=== PATIENT | male | born 1965 | race Caucasian/White ===

== ENCOUNTER 2019-01-06 21:31 | Emergency (ER) | payer SELFPAY ==
--- NOTE | 2019-01-06 21:37 | PDOC ---
Rapid Medical Evaluation Time Seen by Provider: 01/06/19 21:34 Medical Evaluation: Allergies Allergy/AdvReac Type Severity Reaction Status Date / Time No Known Allergies Allergy Verified 02/26/16 18:51 01/06/19 21:35 HPI:3 months of abdominal pain and dysuria with testicular pain PE: no gross deficits; ambulates but appears uncomfortable ORDERS: belly lab UA 01/06/19 21:36
[2019-01-06 21:41] VITALS: TEMP 98.2; BMI 23.0
[2019-01-06] MEDS ORDERED: ONDANSETRON 4 MG/2 ML VIAL IVPB ONE (22:44)
[2019-01-06] MEDS ORDERED: ACETAMINOPHEN 1000 MG/100 ML VIAL (NON FORMULARY) IVPB ONE (22:44)
[2019-01-06] MEDS ORDERED: SODIUM CHLORIDE 1,000 ML IV STA (22:44)
--- NOTE | 2019-01-06 22:50 | PDOC ---
History of Present Illness - General Chief Complaint: Pain, Acute Stated Complaint: GENERAL PAIN/TESTICULAR PAIN Time Seen by Provider: 01/06/19 21:34 History Source: Patient, Family Exam Limitations: Language Barrier - History of Present Illness Initial Comments: 01/06/19 22:45 53yo M with PMH of NIDDM presenting to ED with complaints of lower abdominal pain x3 months worsening over the past 3 weeks. Pt states that the pain is "all over" but mainly in the lower abdomen and testicles. He states he feels the pain when he is lying down but the pain is mainly in the testicles when he is walking, urinates and when he coughs. He does not recall a triggering event. He has also been having a dry cough for the past 3 months. Endorses nausea. Denies vomiting, diarrhea, constipation, bloody stools, hematuria, sob, headaches, injury, syncope, palpitations, history of stds, discharge, abdominal surgeries, recent travel, rashes. PMD: PMH: see hpi PSH: none Meds: Allergies: nkda Past History - Past Medical History Allergies/Adverse Reactions: Allergies Allergy/AdvReac Type Severity Reaction Status Date / Time No Known Allergies Allergy Verified 01/06/19 21:41 Home Medications: Ambulatory Orders Naproxen [Naprosyn -] 500 mg PO BID PRN #14 tablet 09/08/15 Diphenhydramine HCl [Benadryl -] 25 mg PO Q8H PRN #21 capsule 02/26/16 predniSONE [Deltasone -] 20 mg PO BID #10 tablet 02/26/16 COPD: No Diabetes: Yes - Suicide/Smoking/Psychosocial Hx Smoking Status: No Smoking History: Unknown if ever smoked Have you smoked in the past 12 months: No Number of Cigarettes Smoked Daily: 0 Information on smoking cessation initiated: No Hx Alcohol Use: No Drug/Substance Use Hx: No Substance Use Type: None *Physical Exam - Vital Signs Last Vital Signs Temp Pulse Resp BP Pulse Ox 98.2 F 81 16 125/73 100 01/06/19 21:39 01/06/19 21:39 01/06/19 21:39 01/06/19 21:39 01/06/19 21:39 ED Treatment Course - LABORATORY CBC & Chemistry Diagram: 01/06/19 23:05 01/06/19 23:05 Medical Decision Making - Medical Decision Making 01/06/19 22:49 53yo M with PMH of NIDDM presenting to ED with complaints of lower abdominal pain x3 months worsening over the past 3 weeks. Pt states that the pain is "all over" but mainly in the lower abdomen and testicles. He states he feels the pain when he is lying down but the pain is mainly in the testicles when he is walking, urinates and when he coughs. He does not recall a triggering event. He has also been having a dry cough for the past 3 months. Endorses nausea. Denies vomiting, diarrhea, constipation, bloody stools, hematuria, sob, headaches, injury, syncope, palpitations, history of stds, discharge, abdominal surgeries, recent travel, rashes. Vitals: wnl PE: diffuse abdominal tenderness w/o rebound, flank tenderness, R testicular tenderness, no masses or nodules. Some R inguinal fullness. peripheral pulses equal and palpable ddx includes but not limited to hernia (incarcerated v. strangulated), pyelonephritis, nephrolithiasis, AAA, dissection, gastroparesis 01/06/19 23:13 01/07/19 00:24 *DC/Admit/Observation/Transfer Diagnosis at time of Disposition: Abdominal pain Qualifiers: Abdominal location: lower abdomen, unspecified Qualified Code(s): R10.30 - Lower abdominal pain, unspecified - Discharge Dispostion Disposition: HOME Condition at time of disposition: Good Decision to Admit order: No - Referrals Referrals: Bao Mas MD [Staff Physician] - [facility] [place] [Provider Group] Robert Cortes MD., MD [Staff Physician] - - Patient Instructions Printed Discharge Instructions: DI for Abdominal Pain-Adult Additional Instructions: You were seen in the emergency room today for abdominal pain. Your blood tests were all normal and the CT scan shows some inflammation of the bladder but you do not have a urinary tract infection. I recommend making an appointment with your primary care doctor this week. I also recommend making an appointment with a urologist and a GI doctor. Information is provided below. You can take Tylenol for the pain as needed. Drink plenty of fluids. You can take MiraLax for the constipation. This can be found in pharmacies in the over the counter section. Come back to the emergency room if pain gets worse, you have worsening chest pain, you feel short of breath, you start vomiting or if any new concerning symptom develops. Thank you Hoy te vieron en la lea de emergencias por dolor abdominal. Todos reshma anlisis de anjel fueron normales y la tomografa computarizada muestra alguna inflamacin de la vejiga, arie no tiene bjorn infeccin del tracto urinario. Recomiendo hacer bjorn laurie con mendez mdico de atencin primaria esta semana. Aliya recomiendo hacer bjorn laurie con un urlogo y un mdico gastrointestinal. La informacin se proporciona a continuacin. Puede ayse Tylenol para el dolor segn sea necesario. Beber mucho lquido. Puedes ayse MiraLax para el estreimiento. [place] se puede encontrar en farmacias en la seccin de venta anirudh. Regrese a la lea de emergencias si el dolor empeora, est empeorando el dolor de pecho, tiene dificultad para respirar, comienza a vomitar o si aparece algn sntoma nuevo. Joel Print Language: AZERI - Post Discharge Activity
[2019-01-06] MEDS ORDERED: ACETAMINOPHEN INJECTION 100 ML IVPB ONE (23:05)
[2019-01-06] MEDS ORDERED: ONDANSETRON 4 MG/2 ML VIAL ONE (23:06)
[2019-01-06 23:09] LABS: BASO % 1.1 % (0-2.0); EOS % 3.8 % (0-4.5); HEMOGLOBIN 14.7 GM/dL (11.7-16.9); LYMPH % 39.3 % (8-40); MCH 30.2 pg (25.7-33.7); MCHC 34.1 g/dl (32.0-35.9); MEAN CELL VOLUME 88.5 fl (80-96); MONO % 5.8 % (3.8-10.2); PLATELET COUNT 169 K/MM3 (134-434); RBC 4.86 M/mm3 (4.00-5.60); RDW 12.3 % (11.9-15.9); WHITE BLOOD COUNT 4.6 K/mm3 (4.0-10.0)
[2019-01-07 00:11] LABS: ALBUMIN 3.7 g/dl (3.4-5.0); BILIRUBIN,TOTAL 0.4 mg/dL (0.2-1); BLOOD UREA NITROGEN 19.2 mg/dL (7-18); CALCIUM 8.7 mg/dL (8.5-10.1); CREATININE 0.7 mg/dL (0.55-1.3); TOT PROT 6.6 g/dl (6.4-8.2)
[2019-01-07 01:13] LABS: URINE APPEARANCE CLEAR; URINE BILIRUBIN NEGATIVE (NEGATIVE); URINE COLOR YELLOW; URINE GLUCOSE (UA) 3+ (NEGATIVE); URINE KETONE NEGATIVE (NEGATIVE); URINE LEUK ESTERASE NEGATIVE (NEGATIVE); URINE NITRITE NEGATIVE (NEGATIVE); URINE PROTEIN NEGATIVE (NEGATIVE); URINE UROBILINOGEN 0.2 mg/dL (0.2-1.0)
[2019-01-07] MEDS ORDERED: SODIUM CHLORIDE 1,000 ML IV STA (01:52)
[2019-01-07] MEDS ORDERED: INSULIN REGULAR HUMAN 100 UNITS/ML *VIAL SQ ONE (01:53)
--- NOTE | 2019-01-07 01:53 | PDOC ---
Documentation entered by Cesia Crook SCRIBE, acting as scribe for Jerman Florentino MD. Jerman Florentino MD: This documentation has been prepared by the dreaibe, Cesia Crook SCRIBE, under my direction and personally reviewed by me in its entirety. I confirm that the documentation accurately reflects all work, treatment, procedures, and medical decision making performed by me. Attending Attestation - Resident Resident Name: Maki Keller - ED Attending Attestation I have performed the following: I have examined & evaluated the patient, The case was reviewed & discussed with the resident, I agree w/resident's findings & plan, Exceptions are as noted - HPI HPI: 01/06/19 23:28 The patient is a 53-year-old male, with a past medical history of NIDDM, who presents to the ED with complaints of 3 months of worsening lower abdominal pain. He reports feeling the pain when he is lying down and also in his testicles when he ambulates, urinates, and when he coughs. - Physicial Exam PE: 01/07/19 01:50 Patient is awake and alert, well-nourished, in no distress Normocephalic and atraumatic PERRLA, EOMI, no scleral icterus mmm No JVD CTA RRR Abdomen is soft, nondistended, with minimal right lower quadrant and left lower quadrant tenderness to deep palpation without guarding rebound; no palpable hernias, No scrotal masses or testicular tenderness to palpation is identified, no penile lesions No lower extremity edema - Medical Decision Making 01/07/19 01:51 53-year-old male with history of dud-ybhswme-qiofraeng diabetes presents with worsening lower abdominal pain for the past 3 weeks with intermittent dysuria, without nausea vomiting or diarrhea. In the ER, patient is afebrile with normal stable vital signs. Serial abdominal exams reveal right lower quadrant and left lower quadrant tenderness to deep palpation only. There is no evidence of pathology. Scrotal ultrasound is within normal limit. CBC/CMP/UA within normal limit. Hyperglycemia with normal anion gap is noted. Will obtain CT abdomen and pelvis with by mouth and IV contrast to rule out appendicitis. Will reassess.
[2019-01-07] MEDS ORDERED: INSULIN REGULAR HUMAN 100 UNITS/ML *VIAL ONE (02:01)
[2019-01-07 05:31] VITALS: BP 122/7; PULSE 75
== END 2019-01-07 05:00 | disposition home or self-care (01) ==
LOC: JER 21:31
PROC: 3E033NZ Introduction of Analgesics, Hypnotics, Sedatives into Peripheral Vein, Percutaneous Approach (ICD-10-PCS; principal; 2019-01-06)
PROC: 3E033GC Introduction of Other Therapeutic Substance into Peripheral Vein, Percutaneous Approach (ICD-10-PCS; 2019-01-06)
PROC: 3E0337Z Introduction of Electrolytic and Water Balance Substance into Peripheral Vein, Percutaneous Approach (ICD-10-PCS; 2019-01-06)
DX: R10.30 Lower abdominal pain, unspecified (principal); E11.9 Type 2 diabetes mellitus without complications
CPT/HCPCS: 36415; 71046-TC-FY; 74177-TC; 76870-TC; 80053; 81003; 83605; 83690; 85025; 87077; 87086; 99282-25; J0131; J7030

== ENCOUNTER 2022-10-08 22:31 | Emergency (ER) | payer OTHER ==
[2022-10-08 22:55] VITALS: BMI 23.3
[2022-10-08] MEDS ORDERED: SODIUM CHLORIDE 0.9% 500 ML INFUS.BAG IV ONE (23:14)
[2022-10-08 23:27] LABS: BASO % 1.2 % (0-2.0); HEMATOCRIT 38.9 % (35.4-49); HEMOGLOBIN 13.3 GM/dL (11.7-16.9); LYMPH % 33.8 % (8-40); MCH 30.3 pg (25.7-33.7); MCHC 34.2 g/dl (32.0-35.9); MEAN CELL VOLUME 88.7 fl (80-96); MEAN PLT VOLUME 9.5 fl (7.5-11.1); MONO % 6.7 % (3.8-10.2); NEUT % 54.3 % (42.8-82.8); PLATELET COUNT 176 10^3/uL (134-434); RBC 4.39 M/mm3 (4.00-5.60); RDW 13.6 % (11.9-15.9); WHITE BLOOD COUNT 4.1 K/mm3 (4.0-10.0)
[2022-10-08 23:47] LABS: VENOUS BASE EXCESS -6.8 mmol/L (-2-2); VENOUS O2 SATURATION 93.6 % (70-80); VENOUS PCO2 37.8 mmHg (38-52); VENOUS PH 7.313 (7.310-7.410)
[2022-10-08 23:51] LABS: CHLORIDE 96 mmol/L (98-107); SODIUM 133 mmol/L (136-145)
[2022-10-08 23:53] LABS: BLOOD UREA NITROGEN 15.7 mg/dL (7-18); CALCIUM 8.3 mg/dL (8.5-10.1); LIPASE 27 U/L (73-393)
[2022-10-08 23:54] LABS: ALBUMIN 3.4 g/dl (3.4-5.0); ANION GAP 13 MMOL/L (8-16); CO2 24 mmol/L (21-32)
[2022-10-08 23:56] LABS: CREATININE 0.7 mg/dL (0.55-1.3); PHOSPHOROUS 4.8 mg/dL (2.5-4.9); SGOT/AST 18 U/L (15-37); SGPT/ALT 34 U/L (13-61)
[2022-10-08 23:58] LABS: BILIRUBIN,TOTAL 0.4 mg/dL (0.2-1); TOT PROT 6.8 g/dl (6.4-8.2)
[2022-10-08 23:59] LABS: ALK PHOS 131 U/L (45-117)
[2022-10-09] MEDS ORDERED: LACTATED RINGERS SOLUTION 1000 ML INFUS.BAG IV ONE ×2 (01:20→04:23)
[2022-10-09 01:34] LABS: GLUCOSE,RANDOM 471 mg/dL (74-106)
[2022-10-09 03:12] LABS: LACTIC ACID 2.6 mmol/L (0.4-2.0)
[2022-10-09] MEDS ORDERED: MULTIVITAMINS (DAILY MVI) TABLET (FP) PO ONE (04:23)
[2022-10-09] MEDS ORDERED: MULTIVITAMINS (DAILY MVI) TABLET (FP) ONE (05:02)
[2022-10-09 07:00] LABS: PH,URINE 5.5 (5.0-8.0); URINE APPEARANCE CLEAR; URINE BILIRUBIN NEGATIVE (NEGATIVE); URINE COLOR YELLOW; URINE GLUCOSE (UA) 3+ (NEGATIVE); URINE KETONE 2+ (NEGATIVE); URINE LEUK ESTERASE NEGATIVE (NEGATIVE); URINE NITRITE NEGATIVE (NEGATIVE); URINE PROTEIN NEGATIVE (NEGATIVE); URINE UROBILINOGEN 0.2 mg/dL (0.2-1.0)
[2022-10-09] MEDS ORDERED: INSULIN REGULAR HUMAN 100 UNITS/ML *VIAL SQ ONE (07:06)
[2022-10-09 07:09] LABS: COCAINE, UR NEGATIVE (NEGATIVE); OPIATES, URI NEGATIVE (NEGATIVE); PHENCYCLIDINE,URINE NEGATIVE (NEGATIVE); URINE AMPHETAMINES NEGATIVE (NEGATIVE)
[2022-10-09 07:10] LABS: METHADONE, UR NEGATIVE (NEGATIVE); URINE BARBITURATES NEGATIVE (NEGATIVE); URINE BENZODIAZEPINES NEGATIVE (NEGATIVE)
[2022-10-09 07:55] VITALS: BP 120/72; PULSE 68; RESP 16; TEMP 98.3
== END 2022-10-09 08:00 | disposition home or self-care (01) ==
LOC: JER 22:31
DX: E11.65 Type 2 diabetes mellitus with hyperglycemia (principal); F10.920 Alcohol use, unspecified with intoxication, uncomplicated; R55 Syncope and collapse; R41.82 Altered mental status, unspecified; H11.439 Conjunctival hyperemia, unspecified eye; Z20.822 Contact with and (suspected) exposure to COVID-19
CPT/HCPCS: 0241U-QW; 36415; 70450-TC; 80053; 80307; 81003; 82010; 82140; 82803; 82962; 83605; 83690; 84100; 84484; 85025; 87086; 87186; 93005; 93010; 99285-25

== ENCOUNTER 2022-10-27 00:35 | Emergency (ER) | payer OTHER ==
[2022-10-27 00:49] VITALS: RESP 18; BMI 26.6
[2022-10-27 02:34] LABS: EOS % 4.3 % (0-4.5); HEMATOCRIT 40.9 % (35.4-49); HEMOGLOBIN 14.2 GM/dL (11.7-16.9); LYMPH % 38.9 % (8-40); MCHC 34.8 g/dl (32.0-35.9); MEAN CELL VOLUME 89.1 fl (80-96); MONO % 7.2 % (3.8-10.2); NEUT % 48.6 % (42.8-82.8); PLATELET COUNT 141 10^3/uL (134-434); RBC 4.59 M/mm3 (4.00-5.60); RDW 13.8 % (11.9-15.9); WHITE BLOOD COUNT 4.1 K/mm3 (4.0-10.0)
[2022-10-27 02:54] LABS: CHLORIDE 98 mmol/L (98-107); SODIUM 132 mmol/L (136-145)
[2022-10-27 02:56] LABS: CALCIUM 8.7 mg/dL (8.5-10.1)
[2022-10-27 02:57] LABS: ALBUMIN 3.5 g/dl (3.4-5.0); ANION GAP 6 MMOL/L (8-16); BLOOD UREA NITROGEN 17.6 mg/dL (7-18); CO2 29 mmol/L (21-32)
[2022-10-27 03:00] LABS: CREATININE 0.8 mg/dL (0.55-1.3); SGOT/AST 16 U/L (15-37); SGPT/ALT 30 U/L (13-61)
[2022-10-27 03:01] LABS: TOT PROT 6.8 g/dl (6.4-8.2)
[2022-10-27 03:02] LABS: BILIRUBIN,TOTAL 0.3 mg/dL (0.2-1)
[2022-10-27 03:03] LABS: ALK PHOS 202 U/L (45-117)
[2022-10-27] MEDS ORDERED: ACETAMINOPHEN 1000 MG/100 ML BAG IVPB ONE (03:05)
[2022-10-27] MEDS ORDERED: ACETAMINOPHEN 500 MG TABLET (FP) PO ONE (03:16)
[2022-10-27 03:43] LABS: GLUCOSE,RANDOM 449 mg/dL (74-106)
[2022-10-27] MEDS ORDERED: ACETAMINOPHEN 325 MG TABLET (FP) ONE (03:43)
[2022-10-27] MEDS ORDERED: LACTATED RINGERS SOLUTION 1000 ML INFUS.BAG IV ONE (03:48)
[2022-10-27 04:24] LABS: PH,URINE 5.5 (5.0-8.0); URINE APPEARANCE CLEAR; URINE BILIRUBIN NEGATIVE (NEGATIVE); URINE COLOR YELLOW; URINE GLUCOSE (UA) 3+ (NEGATIVE); URINE KETONE TRACE (NEGATIVE); URINE LEUK ESTERASE NEGATIVE (NEGATIVE); URINE NITRITE NEGATIVE (NEGATIVE); URINE PROTEIN NEGATIVE (NEGATIVE); URINE UROBILINOGEN 0.2 mg/dL (0.2-1.0)
[2022-10-27] MEDS ORDERED: metFORMIN HCL 500 MG TABLET (FP) PO ONE (05:22)
[2022-10-27] MEDS ORDERED: INSULIN REGULAR HUMAN 100 UNITS/ML *VIAL IVPUSH ONE (05:48)
[2022-10-27] MEDS ORDERED: INSULIN (NOVOLOG) ASPART 100 UNITS/ML 10ML VIAL SQ ONE (05:54)
[2022-10-27] MEDS ORDERED: metFORMIN HCL 500 MG TABLET (FP) ONE (05:54)
[2022-10-27] MEDS ORDERED: FLUCONAZOLE 50 MG TABLET PO ONE (06:12)
[2022-10-27 06:27] VITALS: BP 121/75; PULSE 64; TEMP 97.8
[2022-10-27] MEDS ORDERED: FLUCONAZOLE 150 MG TABLET PO ONE (06:39)
== END 2022-10-27 06:53 | disposition home or self-care (01) ==
LOC: JER 00:35
PROC: 3E013VG Introduction of Insulin into Subcutaneous Tissue, Percutaneous Approach (ICD-10-PCS; principal; 2022-10-27)
DX: M79.672 Pain in left foot (principal); M79.642 Pain in left hand; M79.641 Pain in right hand; E11.65 Type 2 diabetes mellitus with hyperglycemia; N50.3 Cyst of epididymis; N48.29 Other inflammatory disorders of penis; R30.9 Painful micturition, unspecified; M79.671 Pain in right foot
CPT/HCPCS: 36415; 76870-TC; 80053; 81003; 82962; 85025; 86780; 87086; 87491; 87591; 96372; 99284-25

== ENCOUNTER 2023-01-13 12:24 | Emergency (ER) | payer SELFPAY ==
[2023-01-13 12:33] VITALS: TEMP 98.4; BMI 27.1
[2023-01-13] MEDS ORDERED: SODIUM CHLORIDE 0.9% 500 ML INFUS.BAG IV ONE (13:29)
[2023-01-13] MEDS ORDERED: ACETAMINOPHEN 325 MG TABLET (FP) PO ONE (13:33)
[2023-01-13] MEDS ORDERED: MAG HYDROX/AL HYDROX/SIMETH 30 ML UNIT-DOSE CUP PO ONE (13:34)
[2023-01-13] MEDS ORDERED: FAMOTIDINE 20 MG TABLET PO ONE (13:34)
[2023-01-13] MEDS ORDERED: SUCRALFATE 1 GM TABLET (FP) PO ONE (13:35)
[2023-01-13] MEDS ORDERED: FAMOTIDINE 20 MG TABLET ONE (13:35)
[2023-01-13] MEDS ORDERED: MAG HYDROX/AL HYDROX/SIMETH 30 ML UNIT-DOSE CUP ONE (13:36)
[2023-01-13] MEDS ORDERED: SUCRALFATE 1 GM TABLET (FP) ONE (13:36)
[2023-01-13 13:38] LABS: VENOUS BASE EXCESS 0.5 mmol/L (-2-2); VENOUS O2 SATURATION 47.9 % (70-80); VENOUS PCO2 52.2 mmHg (38-52); VENOUS PH 7.336 (7.310-7.410)
[2023-01-13 13:41] LABS: BASO % 1.2 % (0-2.0); EOS % 4.4 % (0-4.5); HEMATOCRIT 43.2 % (35.4-49); HEMOGLOBIN 14.5 GM/dL (11.7-16.9); LYMPH % 28.2 % (8-40); MCH 30.2 pg (25.7-33.7); MCHC 33.5 g/dl (32.0-35.9); MEAN CELL VOLUME 90.2 fl (80-96); MEAN PLT VOLUME 9.7 fl (7.5-11.1); MONO % 6.2 % (3.8-10.2); PLATELET COUNT 194 10^3/uL (134-434); RBC 4.79 M/mm3 (4.00-5.60); RDW 12.5 % (11.9-15.9); WHITE BLOOD COUNT 5.1 K/mm3 (4.0-10.0)
[2023-01-13] MEDS ORDERED: ACETAMINOPHEN 325 MG TABLET (FP) ONE (13:47)
[2023-01-13 14:00] LABS: POTASSIUM 4.7 mmol/L (3.5-5.1)
[2023-01-13 14:01] LABS: ALBUMIN 3.6 g/dl (3.4-5.0); CALCIUM 9.1 mg/dL (8.5-10.1)
[2023-01-13 14:03] LABS: BLOOD UREA NITROGEN 17.2 mg/dL (7-18)
[2023-01-13 14:05] LABS: CREATININE 0.8 mg/dL (0.55-1.3)
[2023-01-13 14:07] LABS: TOT PROT 6.7 g/dl (6.4-8.2)
[2023-01-13 14:09] LABS: BILIRUBIN,TOTAL 0.5 mg/dL (0.2-1)
[2023-01-13 14:20] LABS: PH,URINE 5.5 (5.0-8.0); URINE APPEARANCE CLEAR; URINE BILIRUBIN NEGATIVE (NEGATIVE); URINE COLOR YELLOW; URINE GLUCOSE (UA) 3+ (NEGATIVE); URINE KETONE NEGATIVE (NEGATIVE); URINE LEUK ESTERASE NEGATIVE (NEGATIVE); URINE NITRITE NEGATIVE (NEGATIVE); URINE PROTEIN NEGATIVE (NEGATIVE); URINE UROBILINOGEN 0.2 mg/dL (0.2-1.0)
[2023-01-13 14:33] VITALS: BP 146/81; PULSE 51; RESP 14
== END 2023-01-13 15:01 | disposition home or self-care (01) ==
LOC: JER 12:24
DX: E11.65 Type 2 diabetes mellitus with hyperglycemia (principal); N48.89 Other specified disorders of penis; R10.32 Left lower quadrant pain; G89.29 Other chronic pain; R20.2 Paresthesia of skin; N43.3 Hydrocele, unspecified; N44.2 Benign cyst of testis
CPT/HCPCS: 36415; 80053; 81003; 82803; 82962; 83605; 85025; 99284-25